=== PATIENT | female | born 1980 | race African-American/Black ===

== ENCOUNTER 2016-10-15 21:19 | Emergency (ER) | payer OTHER ==
[2016-10-15] MEDS ORDERED: Lidocaine 1% w/Epinephrine 1:100K 20 ML VIAL ONE (21:41)
== END 2016-10-15 22:13 | disposition home or self-care (01) ==
LOC: NAV ERS 21:19
DX: L02.224 Furuncle of groin (principal)
CPT/HCPCS: 10060; J2001

== ENCOUNTER 2016-11-09 15:20 | Emergency (ER) | payer OTHER ==
[2016-11-09] MEDS ORDERED: Acetaminophen 500 MG TAB ONE (16:21)
== END 2016-11-09 16:30 | disposition home or self-care (01) ==
LOC: NAV ERS 15:20
DX: J02.9 Acute pharyngitis, unspecified (principal)
CPT/HCPCS: 87081; 87430; 99283

== ENCOUNTER 2017-11-27 09:53 | Emergency (ER) | payer OTHER ==
[2017-11-27] MEDS ORDERED: Ketorolac Tromethamine 60 MG/2 ML VIAL ONE (10:48)
--- NOTE | 2017-11-27 11:46 | RAD ---
LEFT KNEE FOUR VIEWS: 11/27/2017 HISTORY: Fall. Twisting injury. Pain. COMPARISON: None. FINDINGS: A large knee joint effusion is noted. On the oblique image (2 of 4), there is an obliquely oriented lucency involving the proximal left tib ia, suggesting a tibial plateau fracture, which appears to extend to involve the anteromedial left pr oximal tibial cortex. Recommend orthopedic consultation and consideration for CT examination for ful l assessment. IMPRESSION: Large knee joint effusion with a medial tibial plateau fracture, for which orthopedic consultation an d consideration for CT advised. POS: [id number]
== END 2017-11-27 12:17 | disposition home or self-care (01) ==
LOC: NAV ERS 09:53
DX: S82.145A Nondisplaced bicondylar fracture of left tibia, initial encounter for closed fracture (principal); W01.0XXA Fall on same level from slipping, tripping and stumbling without subsequent striking against object, initial encounter; Y92.009 Unspecified place in unspecified non-institutional (private) residence as the place of occurrence of the external cause
CPT/HCPCS: 96372; J1885

== ENCOUNTER 2018-09-12 21:51 | Emergency (ER) | payer OTHER | END 2018-09-12 22:30 | disposition home or self-care (01) | LOC: NAV ERS 21:51 | DX: J06.9 Acute upper respiratory infection, unspecified (principal) | CPT/HCPCS: 99283 ==

== ENCOUNTER 2019-05-06 18:13 | Emergency (ER) | payer SELFPAY | END 2019-05-06 18:45 | disposition home or self-care (01) | LOC: NAV ERS 18:13 | DX: M79.671 Pain in right foot (principal) | CPT/HCPCS: 99281 ==

== ENCOUNTER 2021-08-02 11:56 | Emergency (ER) | payer SELFPAY ==
[2021-08-02] MEDS ORDERED: Ibuprofen 800 MG TAB ONE (12:26)
== END 2021-08-02 12:30 | disposition home or self-care (01) ==
LOC: NAV ERS 11:56
DX: S76.911A Strain of unspecified muscles, fascia and tendons at thigh level, right thigh, initial encounter (principal); X50.9XXA Other and unspecified overexertion or strenuous movements or postures, initial encounter; Y92.129 Unspecified place in nursing home as the place of occurrence of the external cause
CPT/HCPCS: 99283

== ENCOUNTER 2023-03-20 13:08 | Emergency (ER) | payer SELFPAY ==
[2023-03-20] MEDS ORDERED: AMOXicillin 250 MG CAP ONE (13:30)
[2023-03-20] MEDS ORDERED: Ketorolac Tromethamine 60 MG/2 ML VIAL ONE (13:30)
== END 2023-03-20 13:57 | disposition home or self-care (01) ==
LOC: NAV ERS 13:08
DX: K08.89 Other specified disorders of teeth and supporting structures (principal)
CPT/HCPCS: 96372; 99282; J1885

== ENCOUNTER 2023-11-06 03:30 | Emergency (ER) | payer SELFPAY ==
[2023-11-06] MEDS ORDERED: Acetaminophen 500 MG TAB ONE (03:49)
[2023-11-06] MEDS ORDERED: Penicillin V Potassium 250 MG TAB ONE (03:51)
== END 2023-11-06 08:11 | disposition home or self-care (01) ==
LOC: NAV ERS 03:30
DX: K04.4 Acute apical periodontitis of pulpal origin (principal); K02.9 Dental caries, unspecified
CPT/HCPCS: 99282